=== PATIENT | female | born 1990 | race Caucasian/White ===

== ENCOUNTER 2020-12-19 21:38 | Emergency (ER) | payer OTHER ==
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
[2020-12-19] MEDS ORDERED: NORCO 5/325 MG PO ONE (23:30)
[2020-12-19] MEDS ORDERED: NORCO 5/325 MG ONE (23:35)
[2020-12-20 00:37] VITALS: BP 130/96; PULSE 84; O2SAT 98
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
== END 2020-12-20 00:34 | disposition home or self-care (01) ==
LOC: ED 21:38
DX: S59.901A Unspecified injury of right elbow, initial encounter (principal); S99.921A Unspecified injury of right foot, initial encounter; M25.521 Pain in right elbow; M79.671 Pain in right foot; V19.3XXA Pedal cyclist (driver) (passenger) injured in unspecified nontraffic accident, initial encounter
CPT/HCPCS: 73080; 73630; 99283; A9270-GY

== ENCOUNTER 2024-04-07 11:07 | Emergency (ER) | payer OTHER ==
[2024-04-07 11:33] VITALS: TEMP 97
[2024-04-07] MEDS ORDERED: Sodium Chloride 0.9% 1000 ML 1,000 ML ONE (11:47)
[2024-04-07] MEDS: Sodium Chloride 0.9% 1000 ML 1,000 ML IV STA (11:49)
[2024-04-07 11:55] LABS: BASOPHIL % 0.4 % (0.1-1.2); Basophil (Absolute #) 0.04 x10^3/uL (0.01-0.08); Eosinophil % 2.4 % (0.7-5.8); Eosinophil (Absolute #) 0.23 x10^3/uL (0.04-0.36); Hematocrit 36.6 % (34.1-44.9); Hemoglobin 11.6 g/dL (11.2-15.7); IMMATURE GRAN # 0.03 x10^3u/L (0.001-0.031); IMMATURE GRAN % 0.3 % (0.001-0.429); Lymphocyte (Absolute #) 3.09 x10^3/uL (1.18-3.74); Lymphocytes % 31.8 % (19.3-51.7); Mean Cell Volume 84.5 fL (79.4-94.8); Mean Corpuscular Hemoglobin 26.8 pg (25.6-32.2); Mean Corpuscular Hgb Concent. 31.7 g/dL (32.2-35.5); Mean Platelet Volume 9.4 fL (9.4-12.3); Monocyte (Absolute #) 0.54 x10^3/uL (0.24-0.86); Monocytes % 5.5 % (4.7-12.5); Neutrophil % 59.6 % (34.0-71.1); Platelet Count 331 x10^3/uL (182-369); Red Blood Count 4.33 x10^6/uL (3.93-5.22); Red Cell Distribution Width 14.3 % (11.7-14.4); White Blood Count 9.7 x10^3/uL (3.98-10.04)
[2024-04-07 12:06] LABS: ALBUMIN 4.2 g/dL (3.5-5.0); ANION GAP 16.2 MEQ/L (5-15); BILIRUBIN,TOTAL 0.7 mg/dL (0.2-1.3); Creatinine 1 1.03 mg/dL (0.52-1.04); EST GLOMERULAR FILTRATION RATE 74.6 ML/MIN; HCG SERUM TEST NEGATIVE (NEGATIVE); Total Protein 7.8 g/dL (6.3-8.2)
[2024-04-07 12:08] LABS: INR 0.91 (0.8-3.0); PTT 24.8 SECONDS (25.1-36.5)
[2024-04-07 13:34] LABS: Appearance Turbid (Clear); Bacteria Moderate /HPF (None Seen); Bilirubin Moderate (Negative); Blood Moderate (Negative); Epithelial Cells Rare /HPF (None Seen); Glucose, Urine Negative (Negative); Hyaline Casts NONE SEEN /LPF (0-2); Ketones Negative (Negative); Leukocyte Esterase Moderate (Negative); Nitrite Positive (Negative); Protein,Urine Dip 300 (Negative); RBC >100 /HPF (0-5); Urobilinogen 0.2 mg/dL (0.2); WBC 51-100 /HPF (0-5)
--- NOTE | 2024-04-07 14:05 | ERPHSYRPT ---
- History of Present Illness Time Seen by Provider: 04/07/24 11:45 Source: patient Exam Limitations: no limitations Patient Subjective Stated Complaint: pt here for vaginal bleeding for 21 days now, last 3 days she has had some clots, was seen by primary yesterday and refe rred to ob Triage Nursing Assessment: pt alert, walked in, resp easy, skin w/d/p. abd round soft, no edema noted, moves all ext well Physician History: 33-year-old female presents to emergency department for evaluation of vaginal bleeding x 21 days. Patient is here as she had passed a large clot. No active abdominal pain or pelvic pain. No chest pain or shortness of breath. No nausea vomiting or diaphoresis. Patient symptoms are mild to moderate in intensity. No specific worsening improving factors. Patient consulted with her primary ca re physician who advised her to follow-up with her OPEN CLAIMS REPRESENTATIVE physician. Patient's OPEN CLAIMS REPRESENTATIVE physician is not currently available so patient presented to our ED for an evaluation. Patient otherwise feels well. She voices no other complaints or concerns at this time. Portions of this note were created with voice recognition technology. There may be grammatical, spelling, punctuation or sound alike errors Timing/Duration: week(s) Severity: moderate (3 weeks) Modifying Factors: Improves With: nothing Associated Symptoms: denies symptoms Allergies/Adverse Reactions: Penicillins Allergy (Verified 04/07/24 11:19) Home Medications: Bupropion HCl 150 mg Sr [Wellbutrin SR 150 MG] 150 mg PO BID 04/07/24 [History] Drospirenone [Slynd] 1 ea DAILY 04/07/24 [History] Escitalopram Oxalate [Lexapro] 10 mg PO DAILY 04/07/24 [History] Topiramate 25 mg [Topamax 25 MG] 25 mg PO DAILY 04/07/24 [History] Hx Tetanus, Diphtheria Vaccination/Date Given: Yes Hx Influenza Vaccination/Date Given: No Hx Pneumococcal Vaccination/Date Given: No Immunizations Up to Date: Yes Travel Risk - International Travel Have you traveled outside of the country in past 3 weeks: No - Emerging Infectious Disease Are you exhibiting symptoms associated with any current EIDs: No - Review of Systems Constitutional: No Symptoms, No Fever, No Chills Eyes: No Symptoms Ears, Nose, & Throat: No Symptoms Respiratory: No Symptoms, No Cough, No Dyspnea Cardiac: No Symptoms, No Chest Pain, No Edema, No Syncope Abdominal/Gastrointestinal: No Symptoms, No Abdominal Pain, No Nausea, No Vomit ing, No Diarrhea Genitourinary Symptoms: No Symptoms, No Dysuria Musculoskeletal: No Symptoms, No Back Pain, No Neck Pain Skin: No Symptoms, No Rash Neurological: No Dizziness, No Focal Weakness, No Sensory Changes Psychological: No Symptoms Endocrine: No Symptoms Hematologic/Lymphatic: No Symptoms Immunological/Allergic: No Symptoms All Other Systems: Reviewed and Negative - Past Medical History Pertinent Past Medical History: Yes - Past Surgical History Past Surgical History: Yes Musculoskeletal: Orthopedic Surgery Female Surgical History: Section Other Surgical History: fx elbow - Female History Hx Last Menstrual Period: 21 days ago Hx Now: No - Social History Smoking Status: Never smoker Exposure to second hand smoke: No Drug Use: none Patient Lives Alone: No - Social Determinants of Health Will the patient participate in the screening: Yes Do you worry about a steady place to live?: No Do you have any problems with any of the following?: No known problems In the past 12 months,have you had to go without utilities?: No Transportation Issues: No Has anyone in your support network made you feel unsafe?: No Have you or anyone in your house had to go without enough: No - Nursing Vital Signs Nursing Vital Signs: Initial Vital Signs Pulse Rate 107 H 04/07/24 11:30 Respiratory Rate 18 04/07/24 11:30 Blood Pressure 137/91 04/07/24 11:30 O2 Sat by Pulse Oximetry 97 04/07/24 11:30 Pain Scale Pain Intensity 4 - Physical Exam General Appearance: no apparent distress, alert Eye Exam: PERRL/EOMI, eyes nml inspection Ears, Nose, Throat Exam: normal ENT inspection, TMs normal, pharynx normal, moist mucous membranes Neck Exam: normal inspection, non-tender, supple, full range of motion Respiratory Exam: normal breath sounds, lungs clear, No respiratory distress Cardiovascular Exam: regular rate/rhythm, normal heart sounds, normal peripheral pulses Gastrointestinal/Abdomen Exam: soft, normal bowel sounds, No tenderness, No mass Pelvic Exam: normal external exam, other (No active vaginal bleeding observed on pelvic exam.), No adnexal tenderness, No adnexal mass, No mass, No cervical motion tenderness, No vaginal bleeding, No uterine tenderness Back Exam: normal inspection, normal range of motion, No CVA tenderness, No vertebral tenderness Extremity Exam: normal inspection, normal range of motion, pelvis stable Neurologic Exam: alert, oriented x 3, cooperative, normal mood/affect, nml cere bellar function, nml station & gait, sensation nml, No motor deficits Skin Exam: normal color, warm, dry, No rash Lymphatic Exam: No adenopathy SpO2 Interpretation: normal SpO2: 100 O2 Delivery: Room Air - Course Nursing assessment & vital signs reviewed: Yes Ordered Tests: Active Orders 24 hr Category Date Time Status Plant Operator STAT Care 04/07/24 11:41 Active IV Insertion STAT Care 04/07/24 11:40 Active Pulse Oximetry (ED) STAT Care 04/07/24 11:40 Active CBC W DIFF Stat Lab 04/07/24 11:50 Completed CMP Stat Lab 04/07/24 11:50 Completed CULTURE,URINE Stat Lab 04/07/24 11:44 Received HCG QUALITATIVE, SERUM Stat Lab 04/07/24 11:50 Completed PROTIME WITH INR Stat Lab 04/07/24 11:50 Completed PTT Stat Lab 04/07/24 11:50 Completed UA W/RFX UR CULTURE Stat Lab 04/07/24 11:44 Completed Medication Summary Discontinued Medications Generic Name Dose Route Start Last Admin Trade Name Freq PRN Reason Stop Dose Admin Sodium Chloride 1,000 mls @ 999 mls/hr 04/07/24 11:40 04/07/24 12:56 Sodium Chloride 0.9% 1000 Ml IV 04/07/24 12:40 Infused .Q1H1M STA Infusion Sodium Chloride Confirm 04/07/24 11:47 Sodium Chloride 0.9% 1000 Ml Administered 04/07/24 11:48 Dose 1,000 mls @ ud .ROUTE .STK-MED ONE Levofloxacin/Dextrose 500 mg in 100 mls @ 100 mls/hr 04/07/24 14:03 04/07/24 14:14 Levofloxacin 500mg/100ml D5w IV 04/07/24 15:02 Not Given STAT STA Levofloxacin 500 mg 04/07/24 14:14 04/07/24 14:16 Levofloxacin 500 Mg Tablet PO 04/07/24 14:15 500 mg STAT ONE Administration Levofloxacin Confirm 04/07/24 14:15 Levofloxacin 500 Mg Tablet Administered 04/07/24 14:16 Dose 500 mg .ROUTE .[facility]-MED ONE Lab/Rad Data: Laboratory Result Diagrams 04/07/24 11:50 04/07/24 11:50 Laboratory Results 04/07/24 04/07/24 04/07/24 Range/Units 13:25 11:50 11:50 WBC (3.98-10.04) x10^3/uL RBC (3.93-5.22) x10^6/uL Hgb (11.2-15.7) g/dL Hct (34.1-44.9) % MCV (79.4-94.8) fL MCH (25.6-32.2) pg MCHC (32.2-35.5) g/dL RDW (11.7-14.4) % Plt Count (182-369) x10^3/uL MPV (9.4-12.3) fL Gran % (34.0-71.1) % Immature Gran % (Auto) (0.001-0.429) % Nucleat RBC Rel Count (0.00-0.2) % Eos # (Auto) (0.04-0.36) x10^3/uL Immature Gran # (Auto) (0.001-0.031) x10^3u/L Absolute Lymphs (auto) (1.18-3.74) x10^3/uL Absolute Monos (auto) (0.24-0.86) x10^3/uL Absolute Nucleated RBC (0.00-0.012) x10^3u/L Lymphocytes % (19.3-51.7) % Monocytes % (4.7-12.5) % Eosinophils % (0.7-5.8) % Basophils % (0.1-1.2) % Absolute Granulocytes (1.56-6.13) x10^3/uL Basophils # (0.01-0.08) x10^3/uL PT 10.0 (9.4-12.5) SECONDS INR 0.91 (0.8-3.0) APTT 24.8 L (25.1-36.5) SECONDS Sodium (135-145) mmol/L Potassium (3.5-5.1) mmol/L Chloride (98-107) mmol/L Carbon Dioxide (22-30) mmol/L Anion Gap (5-15) MEQ/L BUN (7-17) mg/dL Creatinine (0.52-1.04) mg/dL Estimated GFR ML/MIN Glucose (74-106) mg/dL Calcium (8.4-10.2) mg/dL Total Bilirubin (0.2-1.3) mg/dL AST (14-36) U/L ALT (0-35) U/L Alkaline Phosphatase (38-126) U/L Serum Total Protein (6.3-8.2) g/dL Albumin (3.5-5.0) g/dL Serum HCG, Qual NEGATIVE (NEGATIVE) Urine Color (Yellow) Urine Appearance (Clear) Urine pH (4.6-8.0) Ur Specific Circle (1.005-1.030) Urine Protein (Negative) Urine Glucose (UA) (Negative) mg/dL Urine Ketones (Negative) Urine Blood (Negative) Urine Nitrite (Negative) Urine Bilirubin (Negative) Urine Urobilinogen (0.2) mg/dL Ur Leukocyte Esterase (Negative) U Hyaline Cast (Auto) (0-2) /LPF Urine Microscopic RBC (0-5) /HPF Urine Microscopic WBC (0-5) /HPF Ur Epithelial Cells (None Seen) /HPF Urine Bacteria (None Seen) /HPF Urine Culture Reflexed (NO) Vaginal Aura Group NOT DETECTED (NEGATIVE) Aura species NOT DETECTED (NEGATIVE) T. vaginalis (PCR) NOT DETECTED (NEGATIVE) Bact vaginosis (PCR) POSITIVE A (NEGATIVE) 04/07/24 04/07/24 04/07/24 Range/Units 11:50 11:50 11:44 WBC 9.7 (3.98-10.04) x10^3/uL RBC 4.33 (3.93-5.22) x10^6/uL Hgb 11.6 (11.2-15.7) g/dL Hct 36.6 (34.1-44.9) % MCV 84.5 (79.4-94.8) fL MCH 26.8 (25.6-32.2) pg MCHC 31.7 L (32.2-35.5) g/dL RDW 14.3 (11.7-14.4) % Plt Count 331 (182-369) x10^3/uL MPV 9.4 (9.4-12.3) fL Gran % 59.6 (34.0-71.1) % Immature Gran % (Auto) 0.3 (0.001-0.429) % Nucleat RBC Rel Count 0.0 (0.00-0.2) % Eos # (Auto) 0.23 (0.04-0.36) x10^3/uL Immature Gran # (Auto) 0.03 (0.001-0.031) x10^3u/L Absolute Lymphs (auto) 3.09 (1.18-3.74) x10^3/uL Absolute Monos (auto) 0.54 (0.24-0.86) x10^3/uL Absolute Nucleated RBC 0.00 (0.00-0.012) x10^3u/L Lymphocytes % 31.8 (19.3-51.7) % Monocytes % 5.5 (4.7-12.5) % Eosinophils % 2.4 (0.7-5.8) % Basophils % 0.4 (0.1-1.2) % Absolute Granulocytes 5.80 (1.56-6.13) x10^3/uL Basophils # 0.04 (0.01-0.08) x10^3/uL PT (9.4-12.5) SECONDS INR (0.8-3.0) APTT (25.1-36.5) SECONDS Sodium 140 (135-145) mmol/L Potassium 4.0 (3.5-5.1) mmol/L Chloride 110 H (98-107) mmol/L Carbon Dioxide 18 L (22-30) mmol/L Anion Gap 16.2 H (5-15) MEQ/L BUN 9 (7-17) mg/dL Creatinine 1.03 (0.52-1.04) mg/dL Estimated GFR 74.6 ML/MIN Glucose 109 H (74-106) mg/dL Calcium 9.0 (8.4-10.2) mg/dL Total Bilirubin 0.70 (0.2-1.3) mg/dL AST 38 H (14-36) U/L ALT 43 H (0-35) U/L Alkaline Phosphatase 92 (38-126) U/L Serum Total Protein 7.8 (6.3-8.2) g/dL Albumin 4.2 (3.5-5.0) g/dL Serum HCG, Qual (NEGATIVE) Urine Color Red A (Yellow) Urine Appearance Turbid A (Clear) Urine pH 5.0 (4.6-8.0) Ur Specific Circle 1.010 (1.005-1.030) Urine Protein 300 A (Negative) Urine Glucose (UA) Negative (Negative) mg/dL Urine Ketones Negative (Negative) Urine Blood Moderate A (Negative) Urine Nitrite Positive A (Negative) Urine Bilirubin Moderate A (Negative) Urine Urobilinogen 0.2 (0.2) mg/dL Ur Leukocyte Esterase Moderate A (Negative) U Hyaline Cast (Auto) NONE SEEN (0-2) /LPF Urine Microscopic RBC >100 A (0-5) /HPF Urine Microscopic WBC 51-100 A (0-5) /HPF Ur Epithelial Cells Rare (None Seen) /HPF Urine Bacteria Moderate A (None Seen) /HPF Urine Culture Reflexed YES (NO) Vaginal Aura Group (NEGATIVE) Aura species (NEGATIVE) T. vaginalis (PCR) (NEGATIVE) Bact vaginosis (PCR) (NEGATIVE) - Progress Progress: improved Progress Note: 33-year-old female presents to emergency department for evaluation of vaginal bleeding. Pelvic exam showed no active bleeding. Workup reveals a urinary tract infection and bacterial vaginosis. Prescription for Flagyl and Levaquin forwarded to patient's pharmacy. We contacted Dr. Garcia office. Patient will be seen tomorrow morning at 10 AM for further evaluation. Patient reassessed. She is resting comfortably. No active bleeding. No bleeding when she lays f lat. Patient states he is ready for discharge. She voices no other complaints or concerns at this time. Portions of this note were created with voice recognition technology. There may be grammatical, spelling, punctuation or sound alike errors Complexity of problem addressed is moderate acute complicated. No critical care time. Complex of data reviewed and analyzed is moderate. Test ordered chest reviewed results analyzed and correlated clinically with history and physical exam. Risk of complication and or risk of morbidity/mortality of patient management is moderate. A prescription for Flagyl and Levaquin forwarded to patient's pharmacy. Vital stable. Time spent to discharge patient approximately 20 minutes. Plan of care established for shared decision making. No social determinants of health present to impede follow-up. Portions of this note were created with voice recognition technology. There may be grammatical, spelling, punctuation or sound alike errors 04/07/24 16:25 Counseled pt/family regarding: lab results, diagnosis, need for follow-up, rad results - Departure Departure Disposition: Home Clinical Impression: UTI (urinary tract infection), Vaginal bleeding, Bacterial vaginosis Condition: Stable Critical Care Time: No Referrals: MARKO SALGADO DO [Primary Care Provider] - Follow up/PCP as directed HALEY GARCIA DO [ACTIVE STAFF] - Follow up/PCP as directed Additional Instructions: Please follow-up with Dr. Garcia tomorrow 04/08/2024 at 10 AM. Discharge/Care Plan KATE PELLETIER was seen on 04/07/24 in the Emergency Room. The patient was counseled regarding Diagnosis,Lab results, Imaging studies, need for follow up and when to return to the Emergency Room. Prescriptions given: Discharge Note I have spoken with the patient and/or caregivers. I have explained the patient's condition, diagnosis and treatment plan based on the information available to me at this time. I have answered the patient's and/or caregiver's questions and addressed any concerns. The patient and/or caregivers have as good understanding of the patient's diagnosis, condition and treatment plan as can be expected at this point. The vital signs have been stable. The patient's condition is stable and appropriate for discharge from the emergency department. The patient will pursue further outpatient evaluation with the primary care physician or other designated or consulting physician as outlined in the discharge instructions. The patient and/or caregivers are agreeable to this plan of care and follow-up instructions have been explained in detail. The patient and/or caregivers have received these instruction. The patient/and or caregivers are aware that any significant change in condition or worsening of symptoms should prompt an immediate return to this or the closest emergency department or call 911. Prescriptions: Metronidazole 500 mg [Flagyl 500 MG] 500 mg PO BID 7 Days #14 tablet Levofloxacin [Levaquin 500 MG Tablet] 500 mg PO DAILY #7 tablet
[2024-04-07] MEDS: Levofloxacin 500MG/100ML D5W 500 MG/100 ML BAG IV STA (14:14)
[2024-04-07] MEDS ORDERED: Levofloxacin 500 MG Tablet ONE (14:15)
[2024-04-07] MEDS: Levofloxacin 500 MG Tablet PO ONE (14:16)
[2024-04-07 15:34] LABS: Candida Group NOT DETECTED (NEGATIVE); Candida glab/krus NOT DETECTED (NEGATIVE)
[2024-04-07 16:17] VITALS: BP 121/82; PULSE 97; RESP 18
[2024-04-07 16:24] VITALS: O2SAT 100
[2024-04-07 16:33] LABS: CHLAMYDIA DNA NOT DETECTED (NEGATIVE); GC DNA Probe NOT DETECTED (NEGATIVE)
== END 2024-04-07 16:45 | disposition home or self-care (01) ==
LOC: ED 11:07
DX: N39.0 Urinary tract infection, site not specified (principal); N76.0 Acute vaginitis; N93.9 Abnormal uterine and vaginal bleeding, unspecified; Z79.899 Other long term (current) drug therapy
CPT/HCPCS: 36000; 36415; 80053; 81001; 84703; 85025; 85610; 85730; 87077; 87086; 87186; 87481; 87491; 87591; 87661; 87801; 93041; 94760; 96360; 99284; A9270-GY

== ENCOUNTER 2024-04-08 11:55 | Day surgery (SDC) | payer OTHER ==
[2024-04-08 12:15] VITALS: RESP 18; O2SAT 99
[2024-04-08] MEDS: Lactated Ringers 1,000 ML IV SCH (12:30)
[2024-04-08] MEDS: CLINDAMYCIN-D5W 900 MG/50 ML*** 900 MG/50 ML BAG IV SCH (12:31)
[2024-04-08 12:34] LABS: Hematocrit 34.6 % (34.1-44.9); Mean Cell Volume 86.1 fL (79.4-94.8); Mean Corpuscular Hemoglobin 27.4 pg (25.6-32.2); Mean Corpuscular Hgb Concent. 31.8 g/dL (32.2-35.5); Mean Platelet Volume 9.2 fL (9.4-12.3); Platelet Count 277 x10^3/uL (182-369); Red Blood Count 4.02 x10^6/uL (3.93-5.22); Red Cell Distribution Width 14.4 % (11.7-14.4); White Blood Count 7.8 x10^3/uL (3.98-10.04)
[2024-04-08] MEDS ORDERED: DIPRIVAN 200 MG/20 ML IV ONE (12:42)
[2024-04-08] MEDS ORDERED: Versed 2 MG/2 ML Injection ONE (12:42)
[2024-04-08] MEDS ORDERED: Quelicin Fliptop 200 MG/10 ML ONE (12:42)
[2024-04-08] MEDS ORDERED: SUBLIMAZE 100 MCG/2 ML ONE ×2 (12:42→13:29)
[2024-04-08 12:45] LABS: HCG SERUM TEST NEGATIVE (NEGATIVE)
[2024-04-08 12:47] LABS: ALBUMIN 4.3 g/dL (3.5-5.0); ANION GAP 17.5 MEQ/L (5-15); BILIRUBIN,TOTAL 0.4 mg/dL (0.2-1.3); Calcium 9.1 mg/dL (8.4-10.2); Creatinine 1 0.97 mg/dL (0.52-1.04); EST GLOMERULAR FILTRATION RATE 80.1 ML/MIN; Potassium 4.2 mmol/L (3.5-5.1); Total Protein 7.9 g/dL (6.3-8.2)
[2024-04-08 13:10] LABS: ABO TYPING A; Antibody Screen NEGATIVE (NEGATIVE); RH TYPING POSITIVE
[2024-04-08] MEDS ORDERED: TRANEXAMIC 1,000 MG/100ML-NACL 1,000 MG/100 ML PIGGYBACK IV ONE (13:22)
[2024-04-08 14:32] VITALS: TEMP 98.3
[2024-04-08 14:35] VITALS: BP 127/68; PULSE 98
--- NOTE | 2024-04-10 09:49 | OP ---
SURGERY DATE/TIME: 04/08/2024 [id number] PREOPERATIVE DIAGNOSIS: Abnormal uterine bleeding. POSTOPERATIVE DIAGNOSIS: Abnormal uterine bleeding. PROCEDURE: Hysteroscopy, dilation and curettage. SURGEON: Moises Garcia D.O. PRESS WORKER HELPER: Samira Payne. ANESTHESIA: General. ESTIMATED BLOOD LOSS: 50 mL. COMPLICATIONS: None. FINDINGS: The risks, benefits, indications, and alternatives of the procedure were reviewed with the patient prior to the procedure. Patient understood the risk of infection, bleeding, bowel injury, bladder injury, ureteral injury, uterine perforation, pelvic infection, thromboembolic disorder associated with the surgery and desires to have the surgery as a possible means to alleviate her current medical condition. The patient was seen in the women's health clinic and was noted to have a heavy vaginal bleeding at the time of examination. Patient had been bleeding for approximately 23 days prior to being seen in the office and due to the heavy vaginal bleeding that was noted in the office, the patient was taken for emergency D and C. DESCRIPTION OF PROCEDURE AND FINDINGS: At this point, patient was taken to the operating room, given general sedation, placed in the dorsal lithotomy position, prepped and draped in the usual sterile fashion. A weighted speculum was then placed in the patient's vagina, and the anterior lip of the cervix was grasped with a single tooth tenaculum. The uterus was sounded to approximately 12 cm and at this point, a 5 mm hysteroscope was placed through the endocervical region toward the fundal region. Visualization showed for her to have uterine scarring with no gross abnormalities. From this point, the hysteroscope was removed and a curette was then placed into the fundus of the uterus where the uterus was felt to be heterogenous with likely fibroids throughout the uterine lining. A curette was then, as mentioned, placed in the fundus of the uterus and curettage was performed in all quadrants of the uterus, retrieving a moderate to significant amount of endometrial tissue. After significant curettage, there was no bleeding that was noted after the procedure. At this point, all instruments were removed from the patient's vaginal region. The patient was then taken out of the dorsal lithotomy position, was taken out of anesthesia, was then taken to the recovery room in stable condition. All instruments and laps were accounted for x2.
== END 2024-04-08 15:23 | disposition home or self-care (01) ==
LOC: SDC 11:55
PROVIDERS: ATTEND Obstetrics & Gynecology
DX: N93.9 Abnormal uterine and vaginal bleeding, unspecified (principal)
CPT/HCPCS: 36415; 58558; 80053; 84703; 85027; 86850; 86900; 86901; J0330; J2250; J2704; J3010